=== PATIENT | male | born 1970 | race Caucasian/White ===

== ENCOUNTER 2022-07-23 12:31 | Emergency (ER) | payer OTHER ==
[~2022-07-23] VITALS: Ht 172.7 cm; Wt 100.0 kg
[2022-07-23 12:51] VITALS: BP 165/82
[2022-07-23] MEDS ORDERED: KETOROLAC 60MG/2ML VIAL IM STA (12:51)
[2022-07-23] MEDS ORDERED: NAPR-681 PO (14:05)
[2022-07-23] MEDS ORDERED: TRAM50TA3 PO (14:05)
== END 2022-07-23 14:20 | disposition home or self-care (01) ==
LOC: ER 12:31
DX: M17.11 Unilateral primary osteoarthritis, right knee (principal)
CPT/HCPCS: 73562; 96372; 99283; J1885; Z7610